=== PATIENT | male | born 1965 | race Two or more races ===

== ENCOUNTER 2021-10-10 09:13 | Outpatient (CLI) | payer OTHER | END 2021-10-10 09:14 | disposition home or self-care (01) | LOC: LAB 09:13 | PROVIDERS: ATTEND Orthopaedic Surgery | DX: D64.9 Anemia, unspecified (principal); E88.9 Metabolic disorder, unspecified; D68.8 Other specified coagulation defects; N39.0 Urinary tract infection, site not specified; E11.9 Type 2 diabetes mellitus without complications; A49.02 Methicillin resistant Staphylococcus aureus infection, unspecified site; I10 Essential (primary) hypertension; I49.9 Cardiac arrhythmia, unspecified; Z76.89 Persons encountering health services in other specified circumstances; M25.571 Pain in right ankle and joints of right foot; M79.671 Pain in right foot ==

== ENCOUNTER 2021-10-21 06:31 | Day surgery (SDC) | payer OTHER ==
[~2021-10-21 06:31] MED LIST: ALTACE10 MG PO
== END 2021-10-21 15:30 | disposition home or self-care (01) ==
LOC: CIR.AMB 06:31
PROVIDERS: ATTEND Orthopaedic Surgery
DX: M65.871 Other synovitis and tenosynovitis, right ankle and foot (principal); M66.371 Spontaneous rupture of flexor tendons, right ankle and foot; M76.71 Peroneal tendinitis, right leg; Z88.0 Allergy status to penicillin; I10 Essential (primary) hypertension; Z20.822 Contact with and (suspected) exposure to COVID-19